=== PATIENT | female | born 1975 | race Two or more races ===

== ENCOUNTER 2020-08-30 11:21 | Emergency (ER) | payer OTHER ==
[~2020-08-30] VITALS: Ht 162.6 cm; Wt 59.5 kg
--- NOTE | 2020-08-30 12:35 | PHYS DOC ---
Past History Past Medical History: Kidney Stones (EDUARDO LYONS APRN) Past Surgical History: Appendectomy, Hysterectomy, Oophorectomy, Other Additional Past Surgical Histo: FOOT SURGERY; WISDOM TEETH (EDUARDO LYONS APRN) Alcohol Use: Occasionally (EDUARDO LYONS APRN) General Adult EDM: Chief Complaint: FACE PAIN HPI: HPI: Patient is a 44-year-old female presents with left-sided temporal sensitivity pressure in her cheekbone. Patient states "my skin feels sensitive on the left side of my face, and have tightness in my neck on the left side into my shou lder". Patient reports symptoms started 3 days ago. No known injury. Patient took Motrin yesterday which provided some relief. Patient denies sore throat, congestion, headache or vision changes. (EDUARDO LYONS APRN) Review of Systems: Review of Systems: Constitutional: Denies fever or chills Eyes: Denies change in visual acuity HENT: Denies nasal congestion or sore throat Respiratory: Denies cough or shortness of breath Cardiovascular: Denies chest pain or edema GI: Denies abdominal pain, nausea, vomiting, bloody stools or diarrhea : Denies dysuria Musculoskeletal: Denies back pain or joint pain Integument: Denies rash Neurologic: Denies headache, focal weakness or sensory changes Endocrine: Denies polyuria or polydipsia Lymphatic: Denies swollen glands Psychiatric: Denies depression or anxiety (EDUARDO LYONS APRN) Allergies: Allergies: Allergies Coded Allergies Type Severity Reaction Last Updated Verified codeine Allergy Unknown 08/30/20 Yes tramadol Allergy Unknown 08/30/20 Yes (EDUARDO LYONS APRN) Physical Exam: PE: Constitutional: Well developed, well nourished, no acute distress, non-toxic appearance. [] HENT: Normocephalic, atraumatic, bilateral external ears normal, oropharynx moist, no oral exudates, nose normal. [] Eyes: PERRLA, EOMI, conjunctiva normal, no discharge. [] Neck: Normal range of motion, no tenderness, supple, no stridor. [] Cardiovascular:Heart rate regular rhythm, no murmur [] Lungs & Thorax: Bilateral breath sounds clear to auscultation [] Abdomen: Bowel sounds normal, soft, no tenderness, no masses, no pulsatile masses. [] Skin: Warm, dry, no erythema, no rash. [] Back: No tenderness, no CVA tenderness. [] Extremities: No tenderness, no cyanosis, no clubbing, ROM intact, no edema. [] Neurologic: Alert and oriented X 3, normal motor function, normal sensory function, no focal deficits noted. [] Psychologic: Affect normal, judgement normal, mood normal. [] (EDUARDO LYONS APRN) Current Patient Data: Vital Signs: Vital Signs Date Time Temp Pulse Resp B/P (MAP) Pulse Ox O2 Delivery O2 Flow Rate FiO2 08/30/20 11:21 97.9 85 18 126/54 (78) 100 Room Air (EDUARDO LYONS APRN) EKG: EKG: Sinus rhythm, heart rate 86 bpm, intervals normal, axis normal. Normal EKG otherwise. [] (EDUARDO LYONS APRN) Radiology/Procedures: Radiology/Procedures: [] (EDUARDO LYONS APRN) Heart Score: Risk Factors: Risk Factors: DM, Current or recent (<one month) smoker, HTN, HLP, family history of CAD, obesity. Risk Scores: Score 0 - 3: 2.5% MACE over next 6 weeks - Discharge Home Score 4 - 6: 20.3% MACE over next 6 weeks - Admit for Clinical Observation Score 7 - 10: 72.7% MACE over next 6 weeks - Early Invasive Strategies (EDUARDO LYONS APRN) Course & Med Decision Making: Course & Med Decision Making Pertinent Labs and Imaging studies reviewed. (See chart for details) [] Patient is a 44-year-old female presents with left-sided temporal sensitivity pressure in her cheekbone. Patient states "my skin feels sensitive on the left side of my face, and have tightness in my neck on the left side into my shoulder". Patient reports symptoms started 3 days ago. No known injury. Patient took Motrin yesterday which provided some relief. Patient denies congestion, headache, or vision changes. We will order CRP, ESR, CBC to rule out giant cell arteritis. EKG normal sinus rhythm. CRP and white count all normal limits. Will discharge patient home. Follow-up with primary care physician for further evaluation. No need for steroids at this time. Instructed to return to ER if pain increases or has worsening symptoms. Patient is okay with this plan. (EDUARDO LYONS APRN) Alma Disclaimer: Alma Disclaimer: This electronic medical record was generated, in whole or in part, using a voice recognition dictation system. (EDUARDO LYONS APRN) Attending Co-Sign I oversaw on the above date of service of this patient and discussed the care with the BRAILLE CODER. We discussed history, physical exam findings in addition to laboratory work-up to exclude concerning diagnoses such as temporal arteritis. I agree with the findings, plan of care, and disposition as documented. (BRITTANEY MORENO DO) Departure Departure: Impression: Primary Impression: Facial pain, acute Disposition: 01 DC HOME SELF CARE/HOMELESS Condition: GOOD Referrals: PCP,NO (PCP) Additional Instructions: You were seen today for left-sided temporal pain and pressure. Lab results were all negative. Please follow-up with your primary care physician to make sure they there is not a further work-up that needs to be done. Please return to the ER with new or worsening symptoms. EMERGENCY DEPARTMENT GENERAL DISCHARGE INSTRUCTIONS Thank you for coming to [facility] (ED) today and trusting us with you care. We trust that you had a positivie experience in our Emergency Department. If you wish to speak to the department management, you may call the director at [phone]. YOUR FOLLOW UP INSTRUCTIONS ARE FOLLOWS: 1. Do you have a private Doctor? If you do not have a private doctor, please ask for a resource list of physicians or clinics that may be able to assist you with follow up care. 2. The Emergency Physician has interpreted your x-rays. The X-Ray specialist will also review them. If there is a change in the findings, you will be notified in 48 hours when at all possible. 3. A lab test or culture has been done, your results will be reviewed and you will be notified if you need a change in treatment. ADDITIONAL INSTRUCTIONS AND INFORMATION: 1. Your care today has been supervised by a physician who is specially trained in emergency care. Many problems require more than one evaluation for a complete diagnosis and treatment. We recommend that you schedule your follow up appointment as recommended to ensure complete treatment of you illness or injury. If you are unable to obtain follow up care and continue to have a problem, or if your condition worsens, we recommend that you return to the ED. 2. We are not able to safely determine your condition over the phone nor are we able to give sound medical advice over the phone. For these safety reasons, if you call for medical advice we will ask you to come to the ED for further evaluation. 3. If you have any questions regarding these discharge instructions please call the ED at [phone]. SAFETY INFORMATION: In the interest of safety, wellness, and injury prevention; we encourage you to wear your sealbelt, if you smoke; quite smoking, and we encourage family to use a protective helmet for bicycling and other sporting events that present an increased risk for head injury. IF YOUR SYMPTOMS WORSEN OR NEW SYMPTOMS DEVELOP, OR YOU HAVE CONCERNS ABOUT YOUR CONDITION; OR IF YOUR CONDITION WORSENS WHILE YOU ARE WAITING FOR YOUR FOLLOW UP APPOINTMENT; EITHER CONTACT YOUR PRIMARY CARE DOCTOR, THE PHYSICIAN WHOSE NAME AND NUMBER YOU WERE GIVEN, OR RETURN TO THE ED IMMEDIATELY. EDUARDO LYONS APRN Aug 30, 2020 12:35 BRITTANEY MORENO DO Aug 31, 2020 06:10
[2020-08-30 13:12] LABS: BASO % 1 % (0-3); EOS % 1 % (0-3); HEMATOCRIT 37.6 % (36.0-47.0); HEMOGLOBIN 12.4 g/dL (12.0-15.5); LYMPH # 1.7 x10^3/uL (1.0-4.8); LYMPH % 52 % (24-48); MEAN CORPUSCULAR HEMOGLOBIN 29 pg (25-35); MEAN CORPUSCULAR HGB CONC 33 g/dL (31-37); MEAN CORPUSCULAR VOLUME 87 fL (79-100); MONO # 0.2 x10^3/uL (0.0-1.1); MONO % 8 % (0-9); NEUT # 1.3 x10^3uL (1.8-7.7); NEUT % 39 % (31-73); PLATELET COUNT 373 x10^3/uL (140-400); RED BLOOD COUNT 4.33 x10^6/uL (3.50-5.40); RED CELL DISTRIBUTION WIDTH 13.2 % (11.5-14.5); WHITE BLOOD COUNT 3.3 x10^3/uL (4.0-11.0)
[2020-08-30 13:23] LABS: CALCIUM 9.2 mg/dL (8.5-10.1); CREATININE 0.6 mg/dL (0.6-1.0); GFR 109.1; POTASSIUM 4.2 mmol/L (3.5-5.1)
[2020-08-30 13:26] LABS: C REACTIVE PROTEIN 0.7 mg/L (0-3.3)
[2020-08-30 13:53] VITALS: BP 112/68
--- NOTE | 2020-08-30 15:00 | EKG ---
[address] [address] Test Date: 2020-08-30 Test Time: 11:51:53 Pat Name: JEFFERY ATKINS Department: Room: Gender: F [employer]: CARA : 1975 Requested By: BRITTANEY MORENO Order Number: [id number] Reading MD: Measurements Intervals [place] Rate: 86 P: 52 WY: 126 QRS: 86 QRSD: 82 T: 52 QT: 366 QTc: 441 Interpretive Statements SINUS RHYTHM NORMAL ECG RI6.02 No previous ECG available for comparison
== END 2020-08-30 13:54 | disposition home or self-care (01) ==
LOC: ER 11:21
DX: R51.9 Headache, unspecified (principal); Z87.442 Personal history of urinary calculi; Z88.5 Allergy status to narcotic agent; Z88.6 Allergy status to analgesic agent
CPT/HCPCS: 36415; 80048; 85025; 86140; 93005; 99284